=== PATIENT | male | born 1975 | race Caucasian/White ===

== ENCOUNTER 2016-11-26 11:26 | Emergency (ER) | payer MEDICAID ==
[~2016-11-26] VITALS: Ht 172.7 cm; Wt 82.7 kg
[2016-11-26] MEDS ORDERED: LIDOCAINE GEL 2%, 5ML ONE (12:30)
[2016-11-26] MEDS ORDERED: LIDOCAINE 2% VISCOUS 15 ML UDC MM ONE (12:30)
[2016-11-26] MEDS ORDERED: LIDOCAINE 1%-EPI 1:100K, 20ML INFIL ONE (13:00)
[2016-11-26] MEDS ORDERED: KETAMINE 10 MG/ML, 20ML IV ONE (13:00)
[2016-11-26] MEDS ORDERED: PROPOFOL 10 MG/ML, 20ML IVPush ONE (13:00)
[2016-11-26] MEDS ORDERED: KETAMINE 10 MG/ML, 20ML ONE (13:26)
[2016-11-26] MEDS ORDERED: PROPOFOL 10 MG/ML, 20ML ONE (13:26)
[2016-11-26] MEDS ORDERED: ONDANSETRON ODT 4 MG ONE (15:26)
[2016-11-26] MEDS ORDERED: ONDANSETRON ODT 4 MG PO ONE (16:00)
[2016-11-26 16:05] VITALS: BP 135/78
== END 2016-11-26 16:08 | disposition home or self-care (01) ==
LOC: ED 12:58
DX: K64.5 Perianal venous thrombosis (principal); F17.210 Nicotine dependence, cigarettes, uncomplicated
CPT/HCPCS: 46083; 99152; 99153; 99285; J2704; J3490